=== PATIENT | male | born 1955 | race Caucasian/White ===

== ENCOUNTER 2019-04-27 07:59 | Day surgery (SDC) | payer OTHER ==
[~2019-04-27] VITALS: Ht 177.8 cm; Wt 75.0 kg
[2019-04-27] MEDS ORDERED: ZOCOR40 MG PO (08:49)
[2019-04-27] MEDS ORDERED: LISINOPRIL40 MG PO (08:49)
[2019-04-27] MEDS ORDERED: ASPIRIN81 MG PO (08:49)
[2019-04-27] MEDS ORDERED: PROLIXIN DEC25 MG/ML IM (08:50)
[2019-04-27 08:59] VITALS: BP 124/70; Ht 177.8 cm; Wt 75.0 kg
[2019-04-27 09:15] LABS: BASOPHILS 0.1 % (0-2); EOSINOPHILS 0.4 % (0-7); HEMATOCRIT 45.1 % (42.0-54.0); HEMOGLOBIN 15.4 g/dL (13.5-17.5); IMMATURE GRANULOCYTES 0.1 % (0-5); LYMPHOCYTES 14.1 % (15-50); MCH 31.7 pg (26.0-34.0); MCHC 34.1 g/dL (31.0-37.0); MCV 92.8 fL (80.0-100.0); MEAN PLATELET VOLUME 11.5 fL (7.4-10.4); MONOCYTES 9.5 % (2-11); NEUTROPHILS 75.8 % (40-80); PLATELET COUNT 262 10x3/uL (130-400); RBC 4.86 10x6/uL (4.20-6.10); RDW 13.3 % (11.5-14.5)
[2019-04-27 09:19] LABS: ANION GAP 12.1 mmol/L (8-16); CALCIUM 8.8 mg/dL (8.5-10.1); CARBON DIOXIDE 27.5 mmol/L (21.0-32.0); CREATININE - SERUM 1.3 mg/dL (0.6-1.3); POTASSIUM - SERUM 4.6 mmol/L (3.5-5.1)
--- NOTE | 2019-04-27 10:38 | NUR ---
FINISHED COLONOSCOPY AT 1024 STARTED EGD AT 1035
--- NOTE | 2019-04-27 11:33 | NUR ---
DC INSTRUCTIONS GIVEN TO PT. STATES UNDERSTANDING.
--- NOTE | 2019-04-27 12:07 | HP ---
PATIENT: MADONNA BUCKLEY MEDICAL RECORD: [id number] ACCOUNT: [id number] [facility] 55 ADMISSION DATE: 04/27/19 PCP: ROBI HANSEN MD HISTORY AND PHYSICAL EXAMINATION CHIEF COMPLAINT: Rectal bleeding. HISTORY OF PRESENT ILLNESS: The patient states he has rectal bleeding with every bowel movement. The patient has been having epigastric pain as well. Some reflux symptoms. He is here for colonoscopy and possible EGD if the source of his pain and hematochezia is not identified. The patient was felt to be not suitable for endoscopy at the [facility] and is therefore it is being performed at the hospital. PAST MEDICAL AND SURGICAL HISTORY: Asthma, hypertension, gastroesophageal reflux. SOCIAL HISTORY: Nonsmoker. MEDICINES: Aspirin, lisinopril, Zocor. ALLERGIES: No known drug allergies. REVIEW OF SYSTEMS: Hematochezia, headaches, dizziness, epigastric abdominal pain. PHYSICAL EXAMINATION: GENERAL: The patient does not appear acutely ill. He does appear chronically ill. VITAL SIGNS: Reviewed. EARS: External ears appear normal. EYES: Extraocular movements are intact. NECK: Trachea is midline. CHEST: No intercostal retractions. PULMONARY: Nonlabored. No stridor. NEUROLOGIC: Slowed speech. There may be some loss of higher cortical functioning. IMPRESSION: 1. Hematochezia. 2. Epigastric abdominal pain. PLAN: Colonoscopy with possible EGD. TRANSINT:[id number] Voice Confirmation ID: [id number] DOCUMENT ID: [id number] HISTORY AND PHYSICAL [id number] MADONNA BUCKLEY ROBI HANSEN MD at 1207 CC: TERRA DOHERTY MD [id number] DICTATION DATE: 04/27/19 0954 ROUTER TENDER: 04/27/19 1004 [facility] [address] [place] [address]
--- NOTE | 2019-04-27 12:15 | NUR ---
DC'D IV CATH FULLY INTACT.
--- NOTE | 2019-04-27 12:19 | NUR ---
PT LEFT UNIT VIA WC AT 1219
--- NOTE | 2019-04-27 16:35 | OP ---
PATIENT NAME: MADONNA BUCKLEY MEDICAL RECORD: [id number] :55 LOCATION:[facility] ADMISSION DATE: SURGEON: JASON HANSEN MD DATE OF OPERATION: 04/27/2019 PREOPERATIVE DIAGNOSES: 1. Epigastric abdominal pain. 2. Hematochezia. POSTOPERATIVE DIAGNOSES: 1. Epigastric abdominal pain. 2. Hematochezia. 3. Numerous gastric polyps. 4. Rule out Diop's esophagus. 5. One colonic polyp. 6. Right-sided superior prostate nodule that will require further workup. PROCEDURE: 1. Esophagogastroduodenoscopy with antral and distal esophageal biopsies. 2. Gastric hot biopsy forceps polypectomy times 1. 3. Ablation of 9 gastric polyps utilizing the argon plasma deputy coroner investigator. 4. Total colonoscopy to cecum. 5. Hot biopsy forceps colonic polypectomy times 1. SURGEON: Jason Hansen MD NURSE QUALITY: None. BLOOD LOSS: Minimal. ANESTHESIA: IV sedation. COMPLICATIONS: None. The patient was scheduled for a colonoscopy and if a source of the patient's bleeding and pain cannot be identified, then we will proceed with an EGD. This was in fact necessary. During this endoscopy, I did not find a reason for the patient's epigastric abdominal pain or hematochezia. I must assume that the hematochezia is due to bleeding internal hemorrhoids. OPERATIVE COURSE: The patient was conveyed to endoscopy suite electively on 04/27/2019. IV sedation was induced by the anesthesia staff. The patient was placed in the [place] position. A digital rectal examination was performed. It revealed a very high firm prostate nodule on the right. A colonoscope was inserted through the anus. It was easily advanced to the cecum. The prep was adequate. I slowly withdrew the endoscope. The pullback was greater than a 14-minute pullback. I irrigated and aspirated extensively. One polyp was noted and this was a semi-pedunculated polyp that was 1.0 x 0.9 cm. It was removed in its entirety utilizing the hot biopsy forceps polypectomy technique. I continued to withdraw the endoscope. A retroflexed view was obtained in the rectum. I then unretroflexed the scope and removed it under direct vision. As I did not find a source for the patient's epigastric pain, he was turned 180 degrees. A bite block was inserted. A gastroscope was inserted through the OPERATIVE REPORT [id number] MADONNA BUCKLEY. It was advanced easily into the hypopharynx. The esophagus was easily intubated as were the stomach and duodenum. Upon withdrawal, retroflexed and angulus views were obtained. Antral biopsies were obtained. One gastric hot biopsy forceps polypectomy was performed on a gastric polyp that was a 1.1 x 1.1 cm sessile polyp. There were other smaller polyps that I did not believe need to be examined by pathology. These were ablated in their entireties utilizing the argon plasma deputy coroner investigator. A total of 9 of these gastric polyps were ablated. I then withdrew into the esophagus. In order to rule out Diop's, multiple biopsies were obtained at the EG junction. The endoscope was then withdrawn under direct vision. I did not find a source for the patient's epigastric abdominal pain or hematochezia. I believe the hematochezia was likely due to bleeding internal hemorrhoids. I would recommend that these be treated symptomatically. He does have a right-sided prostate nodule that may require a further workup. TRANSINT:[id number] Voice Confirmation ID: [id number] DOCUMENT ID: [id number] JASON HANSEN MD at 1635 CC: TERRA DOHERTY MD [id number] DICTATION DATE: 04/27/19 1205 WELFARE PROJECT MANAGER: 04/27/19 1236 [facility] 04/27/19 [facility] [address] [place] [address]
== END 2019-04-27 12:19 | disposition home or self-care (01) ==
LOC: D.OPS 07:59
PROVIDERS: Anesthesiology; ATTEND Surgery
DX: K92.1 Melena (principal); K31.7 Polyp of stomach and duodenum; N40.2 Nodular prostate without lower urinary tract symptoms; K63.5 Polyp of colon